=== PATIENT | male | born 1965 | race Caucasian/White ===

== ENCOUNTER 2018-06-29 12:18 | Emergency (ER) | payer BC ==
[2018-06-29] MEDS ORDERED: Ketorolac 60 MG/2 ML SDV IM ONE (12:54)
[2018-06-29] MEDS ORDERED: Ondansetron 4 MG/2 ML SDV IM ONE (12:56)
--- NOTE | 2018-06-29 13:00 | EDM.PDOC ---
ED HPI GENERAL MEDICAL PROBLEM - General Chief Complaint: Headache Stated Complaint: MIGRAINE Time Seen by Provider: 06/29/18 12:48 Source of Information: Reports: Patient, Family, Old Records History Limitations: Reports: No Limitations - History of Present Illness INITIAL COMMENTS - FREE TEXT/NARRATIVE: Bernardo comes into [facility] ED with a migraine headache that started yesterday afternoon. Pain is lancinating, vertex and nonradiating. There is some nausea and photophobia, but no vomiting. He took Imitrex 100 mg tab yesterday without benefit. Migraine Pain Score (Numeric/FACES): 8 - Related Data Allergies Allergy/AdvReac Type Severity Reaction Status Date / Time No Known Allergies Allergy Verified 06/29/18 12:38 Home Meds: Home Meds SUMAtriptan Succinate [Imitrex] 100 mg PO ASDIRECTED 06/29/18 [History] Valsartan [Diovan] 160 mg PO DAILY 06/29/18 [History] atorvaSTATin [Lipitor] 10 mg PO DAILY 06/29/18 [History] Past Medical History Cardiovascular History: Reports: High Cholesterol, Hypertension Neurological History: Reports: Migraines ED ROS GENERAL - Review of Systems Review Of Systems: ROS reveals no pertinent complaints other than HPI. - Physical Exam Exam: See Below Exam Limited By: No Limitations General Appearance: Alert, WD/WN, Moderate Distress Eye Exam: Bilateral Eye: EOMI, Normal Inspection, PERRL Ears: Normal External Exam Nose: Normal Inspection Throat/Mouth: Normal Inspection, Normal Lips, Normal Oropharynx, Normal Voice, No Airway Compromise Head Exam: Normocephalic Neck: Normal Inspection, Supple, Non-Tender, Full Range of Motion Respiratory/Chest: Lungs Clear, Normal Breath Sounds Cardiovascular: Regular Rate, Rhythm, No Murmur GI/Abdominal: Normal Bowel Sounds, No Distention (Male) Exam: Deferred Rectal (Males) Exam: Deferred, Tenderness Neuro Exam (Abbreviated): Alert, Oriented, CN II-XII Intact, Normal Cognition, No Motor/Sensory Deficits Back Exam: Normal Inspection, Full Range of Motion Extremities: Normal Inspection Psychiatric: Normal Affect, Normal Mood Skin Exam: Warm, Dry, Intact, Normal Color, No Rash Course - Vital Signs Text/Narrative:: Following assessment at the [facility] ED, I administered Toradol 60 mg IM and Zofran 4 mg IM for managment of sxs. Patient tolerated well. Last Recorded V/S: Last Vital Signs Temp 36.9 C 06/29/18 12:22 Pulse 87 06/29/18 12:22 Resp 18 06/29/18 12:22 BP 153/102 H 06/29/18 12:22 Pulse Ox 96 06/29/18 12:22 - Orders/Labs/Meds Meds: Medications Discontinued Medications Generic Name Dose Route Start Last Admin Trade Name Timoteo PRN Reason Stop Dose Admin Ketorolac Tromethamine 60 mg 06/29/18 12:54 06/29/18 13:05 Toradol IM 06/29/18 12:55 60 mg ONETIME ONE Administration Ondansetron HCl 4 mg 06/29/18 12:56 06/29/18 13:03 Zofran IM 06/29/18 12:57 4 mg ONETIME ONE Administration Departure - Departure Time of Disposition: 13:05 Disposition: Home, Self-Care 01 Condition: Fair Clinical Impression: Migraine headache without aura Qualifiers: Status migrainosus presence: without status migrainosus Intractability: not intractable Qualified Code(s): G43.009 - Migraine without aura, not intractable , without status migrainosus - Discharge Information *PRESCRIPTION DRUG MONITORING PROGRAM REVIEWED*: Not Applicable *COPY OF PRESCRIPTION DRUG MONITORING REPORT IN PATIENT MARYJO: Not Applicable Instructions: Migraine Headache, [id number], Ketorolac injection, Ondansetron injection Referrals: Puneet Morales MD [Primary Care Provider] - Forms: ED Department Discharge Additional Instructions: Activity as tolerated. Continue regular medications as ordered. Follow up with regular MD as needed. - Problem List & Annotations (1) Migraine headache without aura SNOMED Code(s): 36036600 Code(s): G43.009 - MIGRAINE W/O AURA, NOT INTRACTABLE, W/O STATUS MIGRAINOSUS Status: Acute Current Visit: Yes Annotation/Comment:: I suggested rest, NSAIDs for pain, and follow up if sxs escalate. Qualifiers: Status migrainosus presence: without status migrainosus Intractability: not intractable Qualified Code(s): G43.009 - Migraine without aura, not intractable, without status migrainosus - Problem List Review Problem List Initiated/Reviewed/Updated: Yes - Assessment/Plan Plan: Follow up with PCP.
== END 2018-06-29 13:15 | disposition home or self-care (01) ==
LOC: FB.ED 12:18
DX: G43.009 Migraine without aura, not intractable, without status migrainosus (principal); I10 Essential (primary) hypertension; Z79.899 Other long term (current) drug therapy
CPT/HCPCS: 96372; 99283; J1885; J2405